=== PATIENT | female | born 1970 | race Caucasian/White ===

== ENCOUNTER → 2020-09-20 | Day surgery (SDC) | payer OTHER ==
[~2020-09-20] VITALS: Ht 165.1 cm; Wt 79.4 kg
[~2020-09-20] MED LIST: FLINTSTONES WIT18 MG PO; HAIR, SKIN AND1 EACH PO; METOPROLOL SUCC25 MG PO; VITAFUSION PO; ZYRTEC10 M3 PO
[2020-09-20 08:51] LABS: HCT 48.1 % (37.0-47.0); MCH 29.6 pg (25.0-31.0); MCHC 33.3 g/dL (32.0-36.0); MCV 88.9 fL (78.0-100.0); MPV 9.5 fL (6.0-9.5); RBC 5.41 M/uL (4.20-5.40); RDW 13.9 % (11.5-14.0)
[2020-09-20 11:08] LABS: ALBUMIN 4.3 g/dL (3.4-5.0); BILIRUBIN - TOTAL 0.8 mg/dL (0.2-1.0); GLOBULIN (CALCULATION) 4.2 g/dL; TOTAL PROTEIN 8.5 g/dL (6.4-8.2)
== END | disposition home or self-care (01) ==
LOC: FAS 07:55
PROVIDERS: Surgery
DX: Z12.11 Encounter for screening for malignant neoplasm of colon (principal); K63.5 Polyp of colon; K57.30 Diverticulosis of large intestine without perforation or abscess without bleeding; I10 Essential (primary) hypertension; M54.81 Occipital neuralgia; J45.909 Unspecified asthma, uncomplicated; Z98.84 Bariatric surgery status; Z88.5 Allergy status to narcotic agent; Z88.8 Allergy status to other drugs, medicaments and biological substances; Z79.899 Other long term (current) drug therapy
CPT/HCPCS: 36415; 80053; J2250; J2704; J7120